=== PATIENT | male | born 1950 ===

== ENCOUNTER 2019-04-26 07:57 | Emergency (ER) | payer MEDICARE ==
--- NOTE | 2019-04-26 08:36 | ED ---
GI/ HPI - HPI Summary HPI Summary: 69 yr old male with the complaint of fever, chills, aches. Onset yesterday. Tmax 101. He has also had frequency, hesitancy and urgency with urination. He denies NV. He has no respiratory symptoms. he has no other complaints. He is on coumadin and had a recent aortic valve replacement. - History of Current Complaint Chief Complaint: UCGI Time Seen by Provider: 04/26/19 08:13 Stated Complaint: URINARY CONCERN, FEVER Pain Intensity: 0 - Allergy/Home Medications Allergies/Adverse Reactions: Allergies Allergy/AdvReac Type Severity Reaction Status Date / Time No Known Allergies Allergy Verified 04/26/19 08:09 Home Medications: Home Medications Acetaminophen [Acetaminophen Extra Strength] 1,000 mg PO Q6H PRN 04/26/19 [ History Confirmed 04/26/19] Aspirin EC TAB* [Ecotrin EC Low Dose 81 MG*] 81 mg PO DAILY 04/26/19 [History Confirmed 04/26/19] Metoprolol Tartrate TAB* [Lopressor TAB*] 12.5 - 50 mg PO SEE INSTRUCTIONS 04/26 [History Confirmed 04/26/19] Warfarin TAB(*) [Coumadin TAB(*)] 5 mg PO SEE INSTRUCTIONS 04/26/19 [History Confirmed 04/26/19] Warfarin TAB(*) [Coumadin TAB(*)] 7.5 mg PO SEE INSTRUCTIONS 04/26/19 [History Confirmed 04/26/19] PMH/Surg Hx/FS Hx/Imm Hx Cardiovascular History: Denies: Hx Pacemaker/ICD Sensory History: Denies: Hx Hearing Aid Psychiatric History: Denies: Hx Panic Disorder - Surgical History Surgery Procedure, Year, and Place: Aortic Valve Replacement ([place]), 02/27/19, [facility]; L4 L5 Bilateral Laminectomy, 2012 Infectious Disease History: No Infectious Disease History: Denies: Traveled Outside the [place] in Last 30 Days - Social History Alcohol Use: None Substance Use Type: Reports: None Smoking Status (MU): Never Smoked Tobacco Review of Systems Positive: Fever, Chills, Fatigue Positive: frequency, urgency All Other Systems Reviewed And Are Negative: Yes Physical Exam Triage Information Reviewed: Yes Vital Signs On Initial Exam: Initial Vitals Temp Pulse Resp BP Pulse Ox 99.4 F 86 18 140/63 100 04/26/19 08:04 04/26/19 08:04 04/26/19 08:04 04/26/19 08:04 04/26/19 08:04 Vital Signs Reviewed: Yes Appearance: Positive: Well-Appearing, No Pain Distress Skin: Positive: Warm, Skin Color Reflects Adequate Perfusion Head/Face: Positive: Normal Head/Face Inspection Eyes: Positive: EOMI, GARRICK Neck: Positive: Nontender Respiratory/Lung Sounds: Positive: Clear to Auscultation, Breath Sounds Present Cardiovascular: Positive: RRR. Negative: Murmur Abdomen Description: Negative: Distended Musculoskeletal: Positive: Strength/ROM Intact Neurological: Positive: Sensory/Motor Intact, Alert, Oriented to Person Place, Time, CN Intact II-III Psychiatric: Positive: Normal - Evy Coma Scale Best Eye Response: 4 - Spontaneous Best Motor Response: 6 - Obeys Commands Best Verbal Response: 5 - Oriented Coma Scale Total: 15 Diagnostics - Vital Signs Vital Signs Temp Pulse Resp BP Pulse Ox 04/26/19 08:04 99.4 F 86 18 140/63 100 - Laboratory Lab Results: Lab Results 04/26/19 Range/Units 08:21 POC Urine Color Brown POC Urine Clarity Cloudy POC Urine pH 6.0 (5-9) POC Ur Specif [place] 1.025 (1.010-1.030) POC Urine Protein 3+ A (Negative) POC Ur Glucose (UA) Trace A (Negative) POC Urine Ketones 1+ A (Negative) POC Urine Blood 3+ A (Negative) POC Urine Nitrite Positive A (Negative) POC Urine Bilirubin 2+ A (Negative) POC Urine Urobilinogen 1.0 (Negative) POC U Leukocyte Esteras 1+ A (Negative) Lab Statement: Any lab studies that have been ordered have been reviewed, and results considered in the medical decision making process. GIGU Course/Dx - Course Course Of Treatment: 69 yr old male with fever, chills, fatigue and urinary symptoms. Recommend he go to the ER for full lab evaluation and check his INR given can see blood in his urine. His will drive him to the ER for further evaluation. - Diagnoses Provider Diagnoses: UTI (urinary tract infection), Hematuria, Hypertension Discharge - Sign-Out/Discharge Documenting (check all that apply): Patient Departure All imaging exams completed and their final reports reviewed: No Studies - Discharge Plan Condition: Good Disposition: HOME Patient Education Materials: Hypertension (ED), Urinary Tract Infection in Men (ED), Hematuria (ED) Referrals: Pierre Ceballos MD [Primary Care Provider] - - Billing Disposition and Condition Condition: GOOD Disposition: Home
[2019-04-26 08:45] VITALS: BP 136/65
== END 2019-04-26 08:45 | disposition home or self-care (01) ==
LOC: UCCORT 07:57
DX: R31.9 Hematuria, unspecified (principal); I10 Essential (primary) hypertension; Z79.01 Long term (current) use of anticoagulants; Z95.3 Presence of xenogenic heart valve
CPT/HCPCS: 81003; 99212; G0463